=== PATIENT | female | born 1980 | race Caucasian/White ===

== ENCOUNTER 2018-01-07 23:02 | Emergency (ER) | payer OTHER ==
[~2018-01-07] VITALS: Ht 162.6 cm; Wt 85.7 kg
[~2018-01-07 23:02] MED LIST: CLEOCIN HCL300 MG PO; IBUPROFEN 600600 M1 PO; NAPROSYN500 MG PO; NOHOMEMEDICATIONS; NORCO 5-325 TA1 EACH PO
[2018-01-07] MEDS ORDERED: MYLAN (23:24)
[2018-01-07 23:32] LABS: ABSOLUTE BASOPHILS 0.2 thou/uL (0.0-0.2); ABSOLUTE EOSINOPHILS 0.7 thou/uL (0.0-0.7); ABSOLUTE LYMPHOCYTES 5.6 thou/uL (0.8-5.3); ABSOLUTE MONOCYTES 0.6 thou/uL (0.0-1.2); BASOPHILS 1.3 %; EOSINOPHILS 5.5 %; HEMATOCRIT 41.1 % (37.0-47.0); HEMOGLOBIN 13.5 gm/dL (12.0-15.0); LYMPHOCYTES 46.3 %; MCHC 32.8 g/dL (28.0-37.0); MCV 91.4 fL (80.0-100.0); MONOCYTES 5.3 %; MPV 7.8 fl. (7.2-11.1); NUCLEATED RBCS 0 /100WBC; PLATELET COUNT* 356 thou/uL (150-400); POLYS 41.6 %; RDW-CV 14.9 % (10.5-14.5)
[2018-01-07 23:47] LABS: URINE BILIRUBIN NEGATIVE (Negative); URINE BLOOD 3+ (Negative); URINE CLARITY CLEAR; URINE COLOR YELLOW; URINE GLUCOSE-RANDOM NEGATIVE (Negative); URINE KETONES TRACE (Negative); URINE LEUKOCYTES-REFLEX NEGATIVE (Negative); URINE NITRITE-REFLEX NEGATIVE (Negative); URINE PROTEIN NEGATIVE (Negative); URINE UROBILINOGEN 0.2 E.U./dl (0.2-1.0)
[2018-01-07 23:49] LABS: CALCIUM 8.9 mg/dL (8.5-10.1); CREATININE 0.9 mg/dL (0.6-1.3); POTASSIUM 4.1 mmol/L (3.5-5.1)
[2018-01-07 23:54] LABS: BACTERIA-REFLEX >30 Many /HPF (None Seen); CASTS None Seen /LPF (None Seen); CRYSTALS None Seen /LPF (None Seen); MUCUS 0-3 Light strn/LPF (None Seen); SQUAMOUS 4-10 Moderate /LPF (0-3); URINE WBC-REFLEX 0-5 Rare /HPF (0-5)
[2018-01-07 23:54] LABS: ALBUMIN 3.9 g/dL (3.4-5.0); TOTAL BILIRUBIN 0.2 mg/dL (<0.1-1.0); TOTAL PROTEIN 7.5 g/dL (6.4-8.2)
[2018-01-08] MEDS ORDERED: ULTRAM 50MG TAB50 MG PO (00:15)
[2018-01-08] MEDS ORDERED: BACTRIM DS TAB1 EACH PO (00:15)
[2018-01-08] MEDS ORDERED: PHENERGAN 25 MG25 MG PO (00:15)
[2018-01-08 00:38] VITALS: BP 125/81
== END 2018-01-08 00:39 | disposition home or self-care (01) ==
LOC: M.ERS 23:02
PROVIDERS: Nurse Practitioner
DX: N39.0 Urinary tract infection, site not specified (principal); N94.6 Dysmenorrhea, unspecified; Z87.442 Personal history of urinary calculi

== ENCOUNTER 2020-03-06 23:19 | Emergency (ER) | payer OTHER ==
[~2020-03-06] VITALS: Ht 162.6 cm; Wt 81.7 kg
[~2020-03-06 23:19] MED LIST changes: +BACTRIM DS TAB1 EACH PO; +MYLAN; +PHENERGAN 25 MG25 MG PO; +ULTRAM 50MG TAB50 MG PO
[2020-03-06] MEDS ORDERED: COZAAR 25 MG TA25 M1 PO (23:37)
[2020-03-06] MEDS ORDERED: TOPIRAMATE PO (23:37)
[2020-03-06] MEDS ORDERED: PROPRANOLOL PO (23:38)
[2020-03-06] MEDS ORDERED: AUGMENTIN 875-1 EACH (23:39)
[2020-03-07 02:05] LABS: ABSOLUTE BASOPHILS 0.1 thou/uL (0.0-0.2); ABSOLUTE EOSINOPHILS 0.3 thou/uL (0.0-0.7); ABSOLUTE LYMPHOCYTES 3.9 thou/uL (0.8-5.3); ABSOLUTE MONOCYTES 0.9 thou/uL (0.0-1.2); ABSOLUTE NEUTROPHILS 8.1 thou/uL (1.6-8.1); BASOPHILS 0.7 %; EOSINOPHILS 2.5 %; HEMATOCRIT 40.3 % (37.0-47.0); HEMOGLOBIN 13.2 gm/dL (12.0-15.0); LYMPHOCYTES 29.1 %; MCH 30.1 pg (26.0-34.0); MCHC 32.8 g/dL (28.0-37.0); MONOCYTES 6.6 %; MPV 8.4 fl. (7.2-11.1); NUCLEATED RBCS 0 /100WBC; PLATELET COUNT* 362 thou/uL (150-400); POLYS 61.1 %; RBC 4.38 mil/uL (4.20-5.00); WBC 13.3 thou/uL (4.0-11.0)
[2020-03-07 02:10] LABS: CALCIUM 8.6 mg/dL (8.5-10.1); CREATININE 0.8 mg/dL (0.6-1.3); POTASSIUM 3.4 mmol/L (3.5-5.1)
[2020-03-07 02:15] LABS: ALBUMIN 3.4 g/dL (3.4-5.0); TOTAL BILIRUBIN 0.2 mg/dL (<0.1-1.0); TOTAL PROTEIN 7.4 g/dL (6.4-8.2)
[2020-03-07] MEDS ORDERED: ZOFRAN ODT4 MG PO (04:06)
[2020-03-07] MEDS ORDERED: HYDROCODON-ACE1 EAC7 PO (04:06)
[2020-03-07 04:10] VITALS: BP 146/100
== END 2020-03-07 04:15 | disposition still patient (30) ==
LOC: M.ERS 23:19
PROVIDERS: Personal Emergency Response Attendant
DX: M27.2 Inflammatory conditions of jaws (principal); Z79.899 Other long term (current) drug therapy; Z87.442 Personal history of urinary calculi

== ENCOUNTER 2020-11-23 14:00 | Emergency (ER) | payer OTHER ==
[~2020-11-23] VITALS: Ht 162.6 cm; Wt 83.9 kg
[~2020-11-23 14:00] MED LIST changes: +AUGMENTIN 875-1 EACH; +COZAAR 25 MG TA25 M1 PO; +HYDROCODON-ACE1 EAC7 PO; +PROPRANOLOL PO; +TOPIRAMATE PO; +ZOFRAN ODT4 MG PO
[2020-11-23] MEDS ORDERED: INDERAL LA120 M1 PO (14:15)
[2020-11-23] MEDS ORDERED: TOPAMAX100 MG PO (14:16)
[2020-11-23] MEDS ORDERED: FLEXERIL PO (15:00)
[2020-11-23] MEDS ORDERED: HYDROCODON-ACE1 EAC7 PO (15:00)
[2020-11-23 15:07] VITALS: BP 158/95
== END 2020-11-23 15:08 | disposition home or self-care (01) ==
LOC: M.ERS 14:00
DX: S16.1XXA Strain of muscle, fascia and tendon at neck level, initial encounter (principal); S00.83XA Contusion of other part of head, initial encounter; Z87.442 Personal history of urinary calculi; Z90.710 Acquired absence of both cervix and uterus; V43.52XA Car driver injured in collision with other type car in traffic accident, initial encounter; Y93.89 Activity, other specified; Y92.89 Other specified places as the place of occurrence of the external cause; Y99.8 Other external cause status